=== PATIENT | male | born 1980 | race Caucasian/White ===

== ENCOUNTER 2018-03-14 23:55 | Observation (INO) ==
[2018-03-15] MEDS ORDERED: Naloxone 0.4 MG/ML INJ IVP PRN (05:06)
[2018-03-15 06:02] LABS: BUN/Creatinine Ratio 26 (6-26); Blood Urea Nitrogen 22 mg/dL (6-20); Calcium 8.7 mg/dL (8.6-10.3); Carbon Dioxide 20 mEq/L (23-29); Chloride 107 mEq/L (98-107); Glucose 72 mg/dL (70-105); Osmolality,Calculated 282 (280-300); Potassium 3.4 mEq/L (3.5-5.1); Sodium 135 mEq/L (136-145); eGFR For Non-African Americans > 60 (> 60)
[2018-03-15 06:15] LABS: Troponin I < 0.03 ng/mL (< 0.04)
[2018-03-15 07:01] VITALS: BP 132/69
[2018-03-15 07:04] LABS: Hematocrit 35.9 % (37.5-50.1); Hemoglobin 13.1 g/dL (12.9-16.9); Mean Corpuscular HGB Conc 36.5 g/dL (31.6-35.5); Mean Corpuscular Hemoglobin 32.4 pg (28.0-33.3); Mean Corpuscular Volume 88.9 fL (83.0-100.0); Mean Platelet Volume 10.2 fL (9.4-12.4); Platelet Count 152 K/mcL (140-400); Red Blood Count 4.04 M/mcL (4.19-5.50); Red Cell Distribution Width 12.4 % (11.5-14.5)
--- NOTE | 2018-03-15 07:57 | Internal Med History&Physical ---
Date of Encounter: 03/15/18 Time of Encounter: 04:30 Internal Medicine - H&P: HPI Chief complaint: Paranoia Admitted From: Home Plans for Post Hospital Care: Home History of present illness: Mr. Bojorquez is a 37 year old male Patient not cooperative with exam and did not answer questions regarding why he was in the hospital. NPI from ER notation at [facility]: Was brought to [facility] the day before being seen at the ER by a friend who left him behind. He was out walking around town all day. He felt like someone was watching him, though he would not say who. He was feeling anxious, but denied chest pain and abdominal pain. He was transferred to [facility] for further work up of elevated troponins were noted on his blood work. Past Med Surg Social Fam HX - Past Medical History Medical history: no medical history Psychiatric history: anxiety, depression, PTSD, prior suicide attempt, schizophrenia, previous psychiatric hospitalization - Social History Smoking Status: Current some day smoker Smokeless Tobacco Status: No Alcohol use: recent Drug use: opiates, methamphetamine, IV Drug Use Internal Medicine - H&P: Meds Effexor 03/14/18 [History] Subutex 03/14/18 [History] 3 Allergy/AdvReac Type Severity Reaction Status Date / Time No Known Allergies Allergy Verified 03/14/18 19:37 All Systems PM: A 10-system review of systems was performed and is negative for pertinent findings except as documented above in the HPI. - Constitutional Vitals: Temp Pulse Resp BP Pulse Ox 97.8 F 76 15 132/69 95 03/15/18 06:32 03/15/18 06:32 03/15/18 06:32 03/15/18 06:32 03/15/18 06:32 General appearance: Present: A&O X 3. Absent: cooperative, answers questions appropriately Exam: sleeping, yawning throughout exam - Head Head exam: Present: normal inspection - Eye Additional comments: Could not evaluate, patient would not open eyes. - Respiratory Respiratory exam: Present: CTAB. Absent: respiratory distress - Cardiovascular Cardiovascular exam: Present: RRR. Absent: diastolic murmur, systolic murmur - GI/Abdominal GI/Abdominal exam: Present: normal bowel sounds. Absent: tenderness - Extremities Exam Extremities exam: Present: warm, radial pulses palpable and symmetrical. Absent : tenderness - Back Exam Back exam: Absent: CVA tenderness (L), CVA tenderness (R) - Neurological Exam Neurological exam: Absent: alert, facial droop, speech deficit - Psychiatric Additional comments: Sleeping through out exam, not cooperative. - Skin Additional comments: Multiple tattoos from head to toe, red coloration of skin, likely sunburn. Internal Med - H&P Results - Labs CBC & Chem 7: 03/15/18 06:31 03/15/18 05:21 Labs: Short CBC 03/15/18 Range/Units 06:31 WBC 7.8 (4.3-11.1) K/mcL Hgb 13.1 (12.9-16.9) g/dL Hct 35.9 L (37.5-50.1) % Plt Count 152 (140-400) K/mcL BMP 03/15/18 05:21 Sodium 135 L Potassium 3.4 L Chloride 107 Carbon Dioxide 20 L BUN 22 H Creatinine 0.86 Glucose 72 Calcium 8.7 Cardiac Enzymes 03/15/18 Range/Units 05:21 Troponin I < 0.03 (< 0.04) ng/mL - Assessment and plan (1) Paranoia Status: Acute Assessment and plan: Patient believes he is being followed and watched. Could be related to his meth use. Unknown what his baseline mental state is. Psych consult. Continue to monitor. (2) Elevated troponin I level Status: Acute Assessment and plan: 0.06 at [facility] ER. Denies chest pain. Continue to monitor troponins monitor tech. (3) Methamphetamine abuse Status: Acute Assessment and plan: Patient admitted to using methamphetamine daily during my initial questioning. No urine tox screen performed as patient would not urinate. Continue to monitor. (4) Difficulty urinating Status: Acute Assessment and plan: Patient stated that he has had difficulty urinating, and had not urinated since coming to the ER. urine tox screen Urinalysis for evaluation of possible UTI. - Time Spent With Patient Total time spent is greater than 50% in coordination of care (as documented) at patient's floor/unit and/or counseling patient: 25 - 35 minutes
== END 2018-03-15 07:00 | disposition left against medical advice (07) ==
LOC: 2SOUTHHOLD
PROVIDERS: ADMIT Family Medicine; ATTEND Family Medicine